=== PATIENT | female | born 1990 | race Caucasian/White ===

== ENCOUNTER → 2016-06-22 | Outpatient (CLI) | payer OTHER ==
[~2016-06-22] MED LIST: AMOX500C3 PO; NORG1TAB20 PO
[2016-06-22 10:32] LABS: CHOLESTEROL/HDL RATIO 2.7
== END | disposition home or self-care (01) ==
LOC: C.LAB 08:42
PROVIDERS: ATTEND Family Medicine
DX: Z00.00 Encounter for general adult medical examination without abnormal findings (principal)

== ENCOUNTER 2023-08-21 22:30 | Observation (INO) ==
--- NOTE | 2023-08-21 22:50 | Emergency Department Note ---
History of Present Illness General Chief complaint: Infection, Wound Stated complaint: POST OP, WOUND NEEDS CHECKED Time Seen by Provider: 08/21/23 22:43 History of Present Illness Maximum Pain Intensity: 3 This 33-year-old female who had a fibroid removed 10 days ago presents ER for increasing pain and swelling around the umbilicus area. OB started on Keflex yesterday and added and Bactrim today. Patient states she has had a low-grade fever and increasing pain and swelling. Patient denies chest pain, dyspnea, cough, congestion, vomiting, diarrhea, urinary symptoms. Home Medications Medication Instructions Recorded Confirmed Type ibuprofen 200 mg capsule 400 mg PO Q4H PRN Pain 03/16/20 08/22/23 History omeprazole 20 mg capsule,delayed 20 mg PO QAM #90 caps 05/27/22 08/22/23 Rx release acetazolamide 500 mg 500 mg PO HS 02/04/23 08/22/23 History capsule,extended release potassium chloride 20 mEq 20 meq PO DAILY #30 tabs 02/12/23 08/20/23 Rx tablet,extended release levothyroxine 75 mcg tablet 75 mcg PO QAM 07/07/23 08/22/23 History cephalexin 500 mg capsule 500 mg PO Q12H 10 days #20 caps 08/19/23 08/22/23 Rx sulfamethoxazole 800 1 tab PO BID 10 days #20 tabs 08/21/23 08/21/23 Rx mg-trimethoprim 160 mg tablet (Bactrim DS) escitalopram oxalate 20 mg tablet 20 mg PO QAM 08/22/23 08/22/23 History Allergies Allergy/AdvReac Type Severity Reaction Status Date / Time shellfish derived Allergy Unknown Rash Verified 08/20/23 14:12 (tolerates IV contrast in past) Past Med/Surg History Problem List (Updated 08/22/23 @ 00:12 by Anisa Martinez PA-C) Cellulitis of umbilicus (Acute) Cellulitis Leiomyoma of body of uterus Pseudotumor cerebri (Chronic) GERD (gastroesophageal reflux disease) (Chronic) Controlled Irritable bowel syndrome with diarrhea (Chronic) Iron deficiency anemia (Chronic) Hx Anxiety (Chronic) Hypothyroidism (Chronic) Abnormal uterine bleeding (AUB) (Chronic) Medical History Gynecological disorder Uterine septum (s/p surgery) IIH (idiopathic intracranial hypertension) Dx 01/2023 Reason for Acetazolamide Follows with [facility] Ovarian cyst Hx Surgical History History of colonoscopy Status post hysteroscopic resection of uterine septum H/O wisdom tooth extraction Family History Father Cerebral aneurysm Hypertension Mother CHF (congestive heart failure) Grandmother CHF (congestive heart failure) Brother Junctional rhythm Other Heart disease Social History Smoking Status: Never smoker Second Hand Exposure: No; Do You Dip or Chew Tobacco: No; Hx Alcohol Use: No Hx Substance Use: No Preferred Language: Somali Communication Ability: Effective Roll Carrier Required: No Beliefs That Will Affect Care: None marital status: Current Living Situation: Spouse current occupational status: employed 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 [employer] Feels Safe at Home: Yes Childhood Exposure to Second-Hand Smoke: No Diet: regular caffeine: Yes Dental Care, Regularly: Yes Physical Activity Frequency: 1-2 Times per Week Seatbelt Use: always Sunscreen Use: Yes Do you think of yourself as: straight/heterosexual Assistive Devices: None Review of Systems A total of 10 systems reviewed and were otherwise negative Physical Exam Vital Signs Vital Signs - 24 hr 08/21/23 22:32 08/21/23 22:48 Temperature 36.8 C Temperature Source Temporal Artery Scan Pulse Rate 130 H 117 H Pulse Rhythm Regular Pulse Strength Normal Respiratory Rate 20 Respiratory Effort / Characteristics Non-Labored Spontaneous Respiratory Depth Normal Blood Pressure 143/112 H Blood Pressure Mean 122 Blood Pressure Position Sitting Pulse Oximetry 98 Oxygen Delivery Method Room Air Sepsis Recent Fever Within 48 Hours No Sepsis New/Unexplained Change in Mental Status N/A Sepsis Action Taken by Nursing No Action Required VITALS: Vitals are noted on the nurse's note and reviewed by myself. Vital signs stable. GENERAL: Pleasant female, in no acute distress, nondiaphoretic, well-developed well-nourished. SKIN: Capillary reflex less than 2 seconds. HEENT: Normocephalic. PERRLA. EOMI. Nares patent. Mucous membranes moist. Neck is supple without nuchal rigidity. HEART: Regular rate and rhythm LUNGS: Clear to auscultation bilaterally without wheezes, rales or rhonchi. No retractions or accessory muscle use. ABDOMEN: Positive bowel sounds x 4. Normal tympanic percussion. Soft, tender to palpation over the umbilicus that is erythematous and concerns for cellulitis, without masses or organomegaly. Lobo sign negative. No guarding or rebound tenderness. no CVA tenderness MUSCULOSKELETAL: No gross musculoskeletal defects. NEURO: Patient was alert and oriented to person place and time. No focal neurological deficits. Course Administered Medications Discontinued Medications Diphenhydramine HCl (Diphenhydramine 50 Mg/Ml Vial) 50 mg IV ONE ONE Stop: 08/21/23 22:45 Last Admin: 08/21/23 23:00 Dose: Not Given Documented By: TIFFANY Sodium Chloride (Nss) 1,000 mls @ 999 mls/hr IV .Q1H1M STA Stop: 08/21/23 23:44 Last Admin: 08/21/23 23:45 Dose: 999 mls/hr Documented By: TIFFANY Piperacillin Sod/Tazobactam Sod (Zosyn) 4.5 gm in 100 mls @ 200 mls/hr IV NOW ONE Stop: 08/21/23 23:17 Last Admin: 08/21/23 23:45 Dose: 200 mls/hr Documented By: TIFFANY Ioversol (Optiray 320 100ml) 93 ml IV ONCE ONE Stop: 08/21/23 23:09 Last Admin: 08/21/23 23:08 Dose: 93 ml Documented By: DONNA Lorazepam (Lorazepam 1 Mg/1 Ml Syr Ed Inj Use) 1 mg IV ONE STA Stop: 08/21/23 23:50 Last Admin: 08/21/23 23:54 Dose: 1 mg Documented By: TIFFANY Methylprednisolone (Methylprednisolone 125 Mg/2 Ml Vial) 40 mg IV NOW ONE Stop: 08/21/23 22:45 Last Admin: 08/21/23 23:00 Dose: Not Given Documented By: TIFFANY Medical Decision Making Medical Records Attestation: I reviewed the patient's medical records. Home Medications Current Medication List: was personally reviewed by me Laboratory Data Attestation: I reviewed the patient's lab results. 08/21/23 22:45 08/21/23 22:45 Lab Results 08/21/23 08/21/23 Range/Units 22:45 22:53 WBC 11.98 H (4.8-10.8) K/ul RBC 5.28 (4.20-5.40) M/uL Hgb 11.4 L (12.0-16.0) g/dl POC Hgb 12.9 (12.0-16.0) g/dl Hct 38.4 (37.0-47.0) % POC Hct 38 (37-47) % MCV 72.7 L (80.0-100.0) fL MCH 21.6 L (25.0-34.0) pg MCHC 29.7 L (32.0-36.0) g/dL RDW Std Deviation 47.4 H (36.4-46.3) fL RDW Coeff of Nela 19.1 H (11.5-14.5) % Plt Count 457 H (130-400) K/uL MPV 11.0 (9.4-12.4) fL Immature Gran % (Auto) 0.3 % Neut % (Auto) 77.7 % Lymph % (Auto) 13.9 % [place] % (Auto) 6.8 % Eos % (Auto) 0.8 % Baso % (Auto) 0.5 % Neut # (Auto) 9.31 H (1.40-6.50) K/uL Lymph # (Auto) 1.66 (1.20-3.40) K/uL [place] # (Auto) 0.82 H (0.11-0.59) K/uL Eos # (Auto) 0.09 (0.00-0.50) K/uL Baso # (Auto) 0.06 (0.00-0.20) K/uL Immature Gran # (Auto) 0.04 (0.01-0.20) K/uL POC Sodium 141 (135-144) mmol/L Sodium 138 (136-145) mmol/L POC Potassium 3.1 L (3.3-5.0) mmol/L Potassium 3.2 L (3.5-5.1) mmol/L POC Chloride 110 (101-112) mmol/L Chloride 108 H (98-107) mmol/L Carbon Dioxide 20 L (21-32) mmol/L POC Total CO2 19 L (24-31) mmol/L Anion Gap 10 (3-11) POC Anion Gap 16.0 (16-25) mmol/L POC BUN 12 (7-18) mg/dl BUN 13 (6-23) mg/dl Creatinine 0.94 (0.6-1.2) mg/dl POC Creatinine 0.9 (0.6-1.3) mg/dl Est Cr Clr Drug Dosing 94.8 ml/min Est GFR ( Amer) 91.1 ml/min Est GFR (Non-Af Amer) 78.6 ml/min BUN/Creatinine Ratio 13.8 (10-20) Glucose 159 H (70-99(Fasting)) mg/dl POC Glucose (other) 152 H (70-99) mg/dl Lactate 1.9 (0.4-2.0) mmol/L Calcium 9.0 (8.6-10.3) mg/dl POC Ioniz Calcium Ivon 1.20 (1.12-1.32) mmol/l Total Bilirubin 0.3 (0.2-1.0) mg/dl AST 12 L (13-39) U/L ALT 9 (7-52) U/L Alkaline Phosphatase 95 (34-104) U/L Total Protein 7.5 (6.0-8.3) gm/dl Albumin 4.2 (3.4-5.0) gm/dl Globulin 3.3 (2.5-4.0) gm/dl Albumin/Globulin Ratio 1.3 (0.9-2) Lipase 21 (11-82) U/L HCG, Qual Negative (Negative) Imaging Data Attestation: I personally reviewed and interpreted this imaging study as follows: Radiologist's Impression: Abdomen/Pelvis CT 08/21/23 22:44 Exam(s): CT ABDOMEN + PELVIS With Contrast IV Amt: 93ml optiray 320 EXAM: CT Abdomen and Pelvis With Intravenous Contrast CLINICAL HISTORY: post op surgery. TECHNIQUE: Axial computed tomography images of the abdomen and pelvis with intravenous contrast. CTDI is 28.06 mGy and DLP is 1411.15 mGy-cm. Automated exposure control was utilized for the study. A dose lowering technique was utilized adhering to the principles of ALARA. CONTRAST: Patient received 93ml optiray 320 of IV contrast COMPARISON: No relevant prior studies available. FINDINGS: Lung bases: Unremarkable. No mass. No consolidation. ABDOMEN: Liver: Unremarkable. No mass. Gallbladder and bile ducts: Unremarkable. No calcified stones. No ductal dilation. Pancreas: Unremarkable. No mass. No ductal dilation. Spleen: Unremarkable. No splenomegaly. Adrenals: Unremarkable. No mass. Kidneys and ureters: Irregular atrophic left kidney. The kidneys demonstrate normal enhancement bilaterally without pyelonephritis. No nephrolithiasis or hydronephrosis. Stomach and bowel: The stomach is nearly completely distended with retained oral contents. No gastric mucosal thickening or retrograde filling of the distal esophagus. No bowel obstruction. No significant asymmetric bowel mucosal abnormality. Mild stool burden. No appreciable diverticulitis. PELVIS: Appendix: The appendix is not clearly delineated. No significant findings to suggest acute appendicitis. Bladder: Unremarkable. No mass. Reproductive: The uterus is prominent, measuring 11.5 cm in length with some mild lobulation. No adnexal mass. ABDOMEN and PELVIS: Intraperitoneal space: Unremarkable. No free air. No significant fluid collection. Bones/joints: No acute fracture. No dislocation. Soft tissues: Supraumbilical fat-containing hernia measuring 2 cm transverse. Fat stranding noted in multiple locations of the overlying abdominal subcutaneous fat with minimal subcutaneous emphysema. These changes are most prominent in the periumbilical region with fat stranding and minimal overlying dermal thickening. No abdominal wall hematoma or loculated fluid collection. Vasculature: Unremarkable. No abdominal aortic aneurysm. Lymph nodes: Unremarkable. No enlarged lymph nodes. IMPRESSION: 1. Fat stranding noted in multiple locations of the overlying abdominal subcutaneous fat with minimal subcutaneous emphysema. These changes are most prominent in the periumbilical region with fat stranding and minimal overlying dermal thickening. No abdominal wall hematoma or loculated fluid collection. Suspect normal post laparoscopic access changes. Developing infection of the periumbilical region is difficult to exclude by CT evaluation. Please correlate clinically. 2. The stomach is nearly completely distended with retained oral contents. No gastric mucosal thickening or retrograde filling of the distal esophagus. Suspect normal variation. However, please correlate with time line of oral intake for potential delayed gastric emptying. 3. No bowel obstruction. No significant asymmetric bowel mucosal abnormality. Mild stool burden. No appreciable diverticulitis. No free intraperitoneal fluid or pneumoperitoneum. Electronically signed by: Jovany De La Cruz MD 08/22/23 00:21 AM MDM Narrative Prior records/ancillary studies reviewed. Triage Nursing notes reviewed. Additional history obtained from family. The patient's history was concerning for fever. Differential diagnosis: Etiologies such as postop infection, viral syndrome, otitis, pharyngitis, pneumonia, influenza, meningitis, urinary tract infection, sepsis, bacteremia, as well as others were entertained. Physical examination: As above ER treatment provided: An order was placed for continuous cardiac monitoring. The monitor shows a rate of 60-140 with a sinus rhythm per my interpretation. IV fluids, Zosyn, ativan On reassessment the patient felt better. Diagnostics interpreted by me: ECG: Ordered for tachycardia EKG: Normal sinus, normal intervals, no acute ST-T wave changes. Impression sinus tachycardia independently interpreted by myself The labs Independently Interpreted by myself revealed mild leukocytosis, negative lactic Blood cultures pending Imaging studies: CT as above Consultation: A consultation was placed with SENIOR INDUSTRIAL ENGINEER, Dr. Santos. The case was discussed and diagnostics were reviewed. The patient was evaluated in the ER for further treatment. This appears to be consistent with umbilical cellulitis from recent surgery. OB was consulted and will evaluate and admit the patient. Patient was started on antibiotics. Blood cultures are pending. Negative lactate. Patient is agreeable to treatment plan of admission.. By the evaluation outlined above emergent etiologies such as otitis, pharyngitis, pneumonia, meningitis, urinary tract infection, sepsis, bacteremia, as well as others were deemed relatively unlikely. The pt informed about the findings as listed above. All questions were answered and pleased with the treatment. The chart was completed utilizing LookMed[employer] Speech voice recognition software. Grammatical errors, random word insertions, pronoun errors, and incomplete sentences are an occassional consequence of this system due to software limitations, ambient noise, and hardware issues. Any formal questions or concerns about the content, text, or information contained within the body of this dictation should be directly addressed to the physician district administrative assistant for clarification. Impression & Plan Cellulitis of umbilicus Discharge Plan Visit Data Chief Complaint: Infection, Wound Stated Complaint: POST OP, WOUND NEEDS CHECKED ED Provider: [facility] ED Midlevel Provider: Anisa Martinez Discharge Problem: Cellulitis of umbilicus Patient Disposition: Admitted As Inpatient Condition: Good Forms Stand Alone Forms: [employer] Prescriptions Prescriptions: No Action omeprazole 20 mg capsule,delayed release(DR/EC) 20 mg PO QAM Qty: 90 3RF potassium chloride 20 mEq tablet extended release 20 meq PO DAILY Qty: 30 1RF Patient Comments: no longer taking 07/07/23 cephalexin 500 mg capsule 500 mg PO Q12H 10 Days Qty: 20 0RF acetazolamide 500 mg capsule, extended release 500 mg PO HS sulfamethoxazole-trimethoprim [Bactrim DS] 800-160 mg tablet 1 tab PO BID 10 Days Qty: 20 0RF ibuprofen 200 mg Capsule 400 mg PO Q4H PRN (Reason: Pain) levothyroxine 75 mcg tablet 75 mcg PO QAM escitalopram oxalate 20 mg tablet 20 mg PO QAM Referrals Referrals: Gila Simon MD [Primary Care Provider] -
[2023-08-21] MEDS: methylPREDNISolone 125 MG/2 ML VIAL IV ONE (23:00)
[2023-08-21] MEDS: diphenhydrAMINE 50 MG/ML VIAL IV ONE (23:00)
[2023-08-21 23:04] LABS: Basophils # (auto) 0.06 K/uL (0.00-0.20); Basophils % (auto) 0.5 %; Eosinophils # (auto) 0.09 K/uL (0.00-0.50); Eosinophils % (auto) 0.8 %; Hematocrit (blood only) 38.4 % (37.0-47.0); Hemoglobin 11.4 g/dl (12.0-16.0); Immature Granulocytes # (auto) 0.04 K/uL (0.01-0.20); Immature Granulocytes % (auto) 0.3 %; Lymphocytes # (auto) 1.66 K/uL (1.20-3.40); Lymphocytes % (auto) 13.9 %; Mean Corpuscular Hemoglobin 21.6 pg (25.0-34.0); Mean Corpuscular Hgb Conc 29.7 g/dL (32.0-36.0); Mean Corpuscular Volume 72.7 fL (80.0-100.0); Monocytes # (auto) 0.82 K/uL (0.11-0.59); Monocytes % (auto) 6.8 %; Neutrophils # (auto) 9.31 K/uL (1.40-6.50); Neutrophils % (auto) 77.7 %; Platelet Count 457 K/uL (130-400); RDW Coefficient of Variation 19.1 % (11.5-14.5); RDW Standard Deviation 47.4 fL (36.4-46.3); Red Blood Count 5.28 M/uL (4.20-5.40); White Blood Count 11.98 K/ul (4.8-10.8)
[2023-08-21 23:06] LABS: iSTAT Creatinine 0.9 mg/dl (0.6-1.3); iSTAT Hemoglobin 12.9 g/dl (12.0-16.0); iSTAT Ionized Calcium 1.2 mmol/l (1.12-1.32); iSTAT Potassium 3.1 mmol/L (3.3-5.0)
[2023-08-21] MEDS: OPTIRAY 320 100ml IV ONE (23:08)
[2023-08-21 23:20] LABS: Albumin Globulin Ratio 1.3 (0.9-2); Albumin Level 4.2 gm/dl (3.4-5.0); BUN Creatinine Ratio 13.8 (10-20); Bilirubin,Total 0.3 mg/dl (0.2-1.0); Creatinine Clr Calc Pharmacy 94.8 ml/min; Est GFR (African American) 91.1 ml/min; Est GFR (Non-African American) 78.6 ml/min; Globulin 3.3 gm/dl (2.5-4.0); Potassium 3.2 mmol/L (3.5-5.1); Total Protein 7.5 gm/dl (6.0-8.3)
[2023-08-21 23:21] LABS: Pregnancy Test, Serum Negative (Negative)
[2023-08-21] MEDS: SODIUM CHLORIDE 0.9% 1,000 ML IV STA (23:45)
[2023-08-21] MEDS: PIPERACILLIN/TAZOBACTAM 4.5 GM/100 ML BAG IV ONE (23:45)
[2023-08-21] MEDS: LORazepam 1 MG/1 ML SYR ED Inj Use IV STA (23:54)
--- NOTE | 2023-08-22 00:22 | CT Scan Report ---
Exam(s): CT ABDOMEN + PELVIS With Contrast IV Amt: 93ml optiray 320 EXAM: CT Abdomen and Pelvis With Intravenous Contrast CLINICAL HISTORY: post op surgery. TECHNIQUE: Axial computed tomography images of the abdomen and pelvis with intravenous contrast. CTDI is 28.06 mGy and DLP is 1411.15 mGy-cm. Automated exposure control was utilized for the study. A dose lowering technique was utilized adhering to the principles of ALARA. CONTRAST: Patient received 93ml optiray 320 of IV contrast COMPARISON: No relevant prior studies available. FINDINGS: Lung bases: Unremarkable. No mass. No consolidation. ABDOMEN: Liver: Unremarkable. No mass. Gallbladder and bile ducts: Unremarkable. No calcified stones. No ductal dilation. Pancreas: Unremarkable. No mass. No ductal dilation. Spleen: Unremarkable. No splenomegaly. Adrenals: Unremarkable. No mass. Kidneys and ureters: Irregular atrophic left kidney. The kidneys demonstrate normal enhancement bilaterally without pyelonephritis. No nephrolithiasis or hydronephrosis. Stomach and bowel: The stomach is nearly completely distended with retained oral contents. No gastric mucosal thickening or retrograde filling of the distal esophagus. No bowel obstruction. No significant asymmetric bowel mucosal abnormality. Mild stool burden. No appreciable diverticulitis. PELVIS: Appendix: The appendix is not clearly delineated. No significant findings to suggest acute appendicitis. Bladder: Unremarkable. No mass. Reproductive: The uterus is prominent, measuring 11.5 cm in length with some mild lobulation. No adnexal mass. ABDOMEN and PELVIS: Intraperitoneal space: Unremarkable. No free air. No significant fluid collection. Bones/joints: No acute fracture. No dislocation. Soft tissues: Supraumbilical fat-containing hernia measuring 2 cm transverse. Fat stranding noted in multiple locations of the overlying abdominal subcutaneous fat with minimal subcutaneous emphysema. These changes are most prominent in the periumbilical region with fat stranding and minimal overlying dermal thickening. No abdominal wall hematoma or loculated fluid collection. Vasculature: Unremarkable. No abdominal aortic aneurysm. Lymph nodes: Unremarkable. No enlarged lymph nodes. IMPRESSION: 1. Fat stranding noted in multiple locations of the overlying abdominal subcutaneous fat with minimal subcutaneous emphysema. These changes are most prominent in the periumbilical region with fat stranding and minimal overlying dermal thickening. No abdominal wall hematoma or loculated fluid collection. Suspect normal post laparoscopic access changes. Developing infection of the periumbilical region is difficult to exclude by CT evaluation. Please correlate clinically. 2. The stomach is nearly completely distended with retained oral contents. No gastric mucosal thickening or retrograde filling of the distal esophagus. Suspect normal variation. However, please correlate with time line of oral intake for potential delayed gastric emptying. 3. No bowel obstruction. No significant asymmetric bowel mucosal abnormality. Mild stool burden. No appreciable diverticulitis. No free intraperitoneal fluid or pneumoperitoneum. Electronically signed by: Jovany De La Cruz MD 08/22/23 00:21 AM
[2023-08-22] MEDS ORDERED: MAGNESIUM HYDROXIDE SUSP 30 ML UDC PO PRN (00:28)
[2023-08-22] MEDS ORDERED: ALUMINUM/MAGNESIUM/SIMETH (MAALOX MAX) 30 ML UDC PO PRN (00:28)
[2023-08-22] MEDS ORDERED: LORazepam 0.5 MG TAB PO PRN (00:28)
[2023-08-22] MEDS ORDERED: ONDANSETRON INJ 2 MG/ML 2 ML VIAL IV PRN (00:28)
[2023-08-22] MEDS ORDERED: ACETAMINOPHEN 325 MG TAB PO PRN (00:28)
[2023-08-22] MEDS: diphenhydrAMINE 50 MG/ML VIAL IV STA (00:34)
[2023-08-22] MEDS: PIPERACILLIN/TAZOBACTAM 4.5 GM in DEXTROSE 5% MINI-B 100 ML IV SCH (00:34)
[2023-08-22] MEDS: SODIUM CHLORIDE 0.9% 1,000 ML IV ONE (00:47)
--- NOTE | 2023-08-22 01:10 | History & Physical Report ---
Date of Service August 22, 2023 Assessment & Plan (1) Postoperative wound cellulitis: Plan: CT scan shows no evidence of abscess or loculated fluid in the area of cellulitis she is afebrile here in the ER but with the increased drainage and tachycardia, elevated white count and no improvement on oral antibiotics, we will admit her for IV antibiotic therapy. wound culture was done but it is superficial and may not be helpful as she has already taken several doses of Keflex and one dose of Bactrim. So we will start Zosyn to cover all potential microbes. History of Present Illness Chief Complaint: fever/tachycardia/wound cellulitis Primary Care Provider: Gila Simon MD Patient is a 33-year-old nulligravida female who had undergone a robotic resection of a large leiomyoma on 08/11/2023. She has been doing well until 08/19/2023 when she developed a hard swelling above the umbilicus and the umbilical incision. She had had no drainage at that point and no redness noticed. She was begun on Keflex 500 mg every 12 hours at that time. She also denies any fever or chills at that time. On 08/19, she developed a dark brown and somewhat purulent discharge from the incision and was concerned that now the incision was red and tender. She was seen in the office and Bactrim DS twice daily was added to the Keflex regimen. She had only taken 1 dose of the Bactrim when she noticed fever and chills and her temperature was 101 F. She also was tachycardic at that time. She denies any nausea or vomiting. In fact, she had been out to dinner with her when she started to experience the fever and chills. Serous Drainage from her incision had also increased and she became concerned enough to merit evaluation in the emergency room this evening. Allergies Allergy/AdvReac Type Severity Reaction Status Date / Time shellfish derived Allergy Unknown Rash Verified 08/20/23 14:12 (tolerates IV contrast in past) Home Medications Medication Instructions Recorded Confirmed Type ibuprofen 200 mg capsule 400 mg PO Q4H PRN Pain 03/16/20 08/22/23 History omeprazole 20 mg capsule,delayed 20 mg PO QAM #90 caps 05/27/22 08/22/23 Rx release acetazolamide 500 mg 500 mg PO HS 02/04/23 08/22/23 History capsule,extended release levothyroxine 75 mcg tablet 75 mcg PO QAM 07/07/23 08/22/23 History cephalexin 500 mg capsule 500 mg PO Q12H 10 days #20 caps 08/19/23 08/22/23 Rx sulfamethoxazole 800 1 tab PO BID 10 days #20 tabs 08/21/23 08/22/23 Rx mg-trimethoprim 160 mg tablet (Bactrim DS) escitalopram oxalate 20 mg tablet 20 mg PO QAM 08/22/23 08/22/23 History Patient History Medical History Gynecological disorder Uterine septum (s/p surgery) IIH (idiopathic intracranial hypertension) Dx 01/2023 Reason for Acetazolamide Follows with [facility] neuro Ovarian cyst Hx Surgical History History of colonoscopy Status post hysteroscopic resection of uterine septum H/O wisdom tooth extraction Family History Father Cerebral aneurysm Hypertension Mother CHF (congestive heart failure) Grandmother CHF (congestive heart failure) Brother Junctional rhythm Other Heart disease Social History Smoking Status: Never smoker Second Hand Exposure: No; Do You Dip or Chew Tobacco: No; Hx Alcohol Use: No Hx Substance Use: No Preferred Language: Honduran Communication Ability: Effective River Transportation Worker Required: No Beliefs That Will Affect Care: None marital status: Current Living Situation: Spouse current occupational status: employed 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 [employer] Feels Safe at Home: Yes Childhood Exposure to Second-Hand Smoke: No Diet: regular caffeine: Yes Dental Care, Regularly: Yes Physical Activity Frequency: 1-2 Times per Week Seatbelt Use: always Sunscreen Use: Yes Do you think of yourself as: straight/heterosexual Assistive Devices: None Review of Systems All systems reviewed & are unremarkable except as noted in HPI & below Physical Exam Constitutional: WD/WN, vitals as above Respiratory: normal respiratory effort, lungs clear to auscultation Cardiovascular: RRR, no murmur, no edema Gastrointestinal (Abdomen): Inspection/Auscultation: + abdominal surgical incision 4cm area of erythema and induration supe rior to the umbilicus and encompassing the incision. Moderate amount of serosanguinous drainage also noted on dressing and when incision pressed. no purulent drainage noted. milder erythema also ext ends superiorly around the indurated area as well . Psychiatric: A+Ox3, euthymic affect Results & Data Vital Signs (Past 12 Hours) Vital Signs Temp Pulse Resp BP Pulse Ox O2 Del Method 08/21/23 22:48 117 H 08/21/23 22:32 98.2 F 130 H 20 143/112 H 98 Room Air Code Status & VTE Plan VTE Prophylaxis Plan VTE Prophylaxis will be ordered: No Coding Level of Care Code 03672 INT INP/OBS CARE 40MIN Diagnoses Postoperative wound cellulitis T81.49XA
[2023-08-22] MEDS: LACTATED RINGER'S 1,000 ML IV SCH ×2 (03:32→03:50)
[2023-08-22] MEDS: IBUPROFEN 200 MG TAB PO PRN (03:50)
[2023-08-22 04:45] LABS: Appearance Urine Turbid (Clear); Bacteria Urine Automated 1+ (None Seen); Bilirubin Urine 1+ (Negative); Blood Urine 3+ (Negative); Calcium Oxalate Crystals Urine Present (None Prsent); Color Urine Orange; Epithelial Cell Urine Auto 0-2 /hpf (0-2); Glucose Urine UA Negative (Negative); Ketones Urine Negative (Negative); Leukocyte Esterase Urine 2+ (Negative); Nitrite Urine Negative (Negative); Protein Urine 3+ (Negative); RBC Urine Automated >20 /hpf (0-2); Specific Gravity Urine 1.027 (1.000-1.030); Urobilinogen Urine Negative (Negative); WBC Urine Automated >50 /hpf (0-5); pH Urine 5.5 (4.5-7.5)
[2023-08-22] MEDS: LEVOTHYROXINE SODIUM 75 MCG TABLET PO SCH (05:40)
--- NOTE | 2023-08-22 08:16 | Gynecologic Progress Note ---
Date of Service August 22, 2023 Assessment & Plan (1) Postoperative wound cellulitis: Plan: Patient was admitted early this morning for elevated white count and pulse rate she had an elevated temperature at home as well she had attempted and failed outpatient antibiotic management and is now on IV antibiotics. Came by bedside to discussed with patient she is feeling okay definitely feels better on it than when she was admitted we discussed how long to run the IV antibiotics and discussed further outpatient therapy after discharge patient is interested in going home later today we will have to reassess and see how she is doing we discussed the possibility of staying 1 more night support and reassurance provided I also reviewed her CT scan with her which seems to be nothing active in the pelvis which is good and this seems very superficial as far as the infection Admission and Anticipated Discharge Date Admission Date: August 22, 2023 Results & Data Vital Signs (Past 12 Hours) Vital Signs Temp Pulse Pulse Pulse Resp BP BP 08/22/23 07:14 97.9 F 85 16 129/79 08/22/23 03:22 98.2 F 109 H 18 121/87 08/22/23 01:00 102 H 16 146/96 H 08/22/23 00:00 101 H 21 142/96 H 08/21/23 22:48 117 H 08/21/23 22:32 98.2 F 130 H 20 143/112 H Pulse Ox O2 Del Method 08/22/23 07:14 96 Room Air 08/22/23 03:22 97 Room Air 08/22/23 01:00 100 08/22/23 00:00 100 08/21/23 22:48 08/21/23 22:32 98 Room Air PG Care Time/CCT Total # of Minutes Spent Total Time Spent with Patient: Total time spent is greater than 50% in coordination of care (as documented) at patient's floor/unit and/or counseling patient: Coding Level of Care Code 92435 Post Operative Follow-Up Diagnoses Postoperative wound cellulitis T81.49XA
[2023-08-22 08:20] LABS: Basophils # (auto) 0.05 K/uL (0.00-0.20); Basophils % (auto) 0.5 %; Eosinophils # (auto) 0.09 K/uL (0.00-0.50); Eosinophils % (auto) 0.9 %; Hematocrit (blood only) 32.6 % (37.0-47.0); Hemoglobin 9.7 g/dl (12.0-16.0); Immature Granulocytes # (auto) 0.03 K/uL (0.01-0.20); Immature Granulocytes % (auto) 0.3 %; Lymphocytes # (auto) 1.79 K/uL (1.20-3.40); Lymphocytes % (auto) 17.7 %; Mean Corpuscular Hemoglobin 21.5 pg (25.0-34.0); Mean Corpuscular Hgb Conc 29.8 g/dL (32.0-36.0); Mean Corpuscular Volume 72.1 fL (80.0-100.0); Mean Platelet Volume 11.6 fL (9.4-12.4); Monocytes # (auto) 0.81 K/uL (0.11-0.59); Neutrophils # (auto) 7.36 K/uL (1.40-6.50); Neutrophils % (auto) 72.6 %; Platelet Count 422 K/uL (130-400); RDW Coefficient of Variation 18.5 % (11.5-14.5); RDW Standard Deviation 47.3 fL (36.4-46.3); Red Blood Count 4.52 M/uL (4.20-5.40); White Blood Count 10.13 K/ul (4.8-10.8)
[2023-08-22] MEDS: ESCITALOPRAM OXALATE 20 MG TAB PO SCH (09:32)
[2023-08-22] MEDS: PANTOprazole 40 MG TAB PO SCH (09:33)
[2023-08-22] MEDS: ADVANCED PROBIOTIC 625 MG CAPSULE PO SCH (09:38)
[2023-08-22] MEDS ORDERED: ZOLPIDEM TARTRATE 5 MG TAB PO PRN (19:55)
[2023-08-22] MEDS: acetaZOLAMIDE 500 MG CAPCR PO SCH (20:24)
[2023-08-23 06:26] LABS: Hematocrit (blood only) 30.5 % (37.0-47.0); Hemoglobin 9.1 g/dl (12.0-16.0); Mean Corpuscular Hemoglobin 21.8 pg (25.0-34.0); Mean Corpuscular Hgb Conc 29.8 g/dL (32.0-36.0); Mean Corpuscular Volume 73.1 fL (80.0-100.0); Mean Platelet Volume 12.1 fL (9.4-12.4); Platelet Count 383 K/uL (130-400); RDW Coefficient of Variation 18.6 % (11.5-14.5); RDW Standard Deviation 48.5 fL (36.4-46.3); Red Blood Count 4.17 M/uL (4.20-5.40); White Blood Count 7.05 K/ul (4.8-10.8)
--- NOTE | 2023-08-23 08:10 | Gynecologic Progress Note ---
Date of Service August 23, 2023 Assessment & Plan (1) Postoperative wound cellulitis: Plan: Post op day 12 and hospital day 2 for a post op wound infection from laparoscopic myomectomy. Remains afebrile with improving symptoms. Improving wound appearance. Course is stable for outpatient antibiotic management. Continue Bactrim and Keflex while awaiting cultures. Plan for discharge and follow up in clinic on Friday. Will call with any changes over the weekend. Admission and Anticipated Discharge Date Admission Date: August 22, 2023 Subjective No acute event. No fevers since admission. Reporting serous drainage. Tenderness improving Physical Exam Gastrointestinal (Abdomen): Percussion/Palpation: abdomen soft; abdomen nontender, no guarding and abdomen not rigid Incision with serous drainage. Erythema mildly improved. Induration improving. Results & Data Vital Signs (Past 12 Hours) Vital Signs Temp Pulse Resp BP Pulse Ox O2 Del Method 08/22/23 23:00 36.6 C 81 20 137/80 97 Room Air 08/22/23 20:51 36.5 C 73 16 114/77 96 Room Air 08/22/23 20:18 Room Air PG Care Time/CCT Total # of Minutes Spent Total Time Spent with Patient: Total time spent is greater than 50% in coordination of care (as documented) at patient's floor/unit and/or counseling patient: Coding Level of Care Code 50162 Post Operative Follow-Up Diagnoses Postoperative wound cellulitis T81.49XA
--- NOTE | 2023-08-25 17:41 | Discharge Summary ---
Date of Service August 25, 2023 Admission HPI Per Admitting Provider Patient is a 33-year-old nulligravida female who had undergone a robotic resection of a large leiomyoma on 08/11/2023. She has been doing well until 08/19/2023 when she developed a hard swelling above the umbilicus and the umbilical incision. She had had no drainage at that point and no redness noticed. She was begun on Keflex 500 mg every 12 hours at that time. She also denies any fever or chills at that time. On 08/19, she developed a dark brown and somewhat purulent discharge from the incision and was concerned that now the incision was red and tender. She was seen in the office and Bactrim DS twice daily was added to the Keflex regimen. She had only taken 1 dose of the Bactrim when she noticed fever and chills and her temperature was 101 F. She also was tachycardic at that time. She denies any nausea or vomiting. In fact, she had been out to dinner with her when she started to experience the fever and chills. Serous Drainage from her incision had also increased and she became concerned enough to merit evaluation in the emergency room this evening. Admission Exam (Per Admitting) Constitutional WD/WN, vitals as above Respiratory normal respiratory effort, lungs clear to auscultation Cardiovascular RRR, no murmur, no edema Gastrointestinal (Abdomen) Inspection/Auscultation: + abdominal surgical incision Psychiatric A+Ox3, euthymic affect Discharge Data Consultations 08/22/23 00:11 ED Decision to Admit Stat Hospital Course (1) Postoperative wound cellulitis: Post op day 12 and hospital day 2 for a post op wound infection from laparoscopic myomectomy. Remains afebrile with improving symptoms. Improving wound appearance. Course is stable for outpatient antibiotic management. Continue Bactrim and Keflex while awaiting cultures. Plan for discharge and follow up in clinic on Friday. Will call with any changes over the weekend. Discharge Plan Discharge Items Patient Disposition: Home - Self-Care Reason For Visit: WOUND CELLULITIS Discharge Diagnosis: Wound infection Condition on Discharge: Good Activity: Per Instructions section Non-emergency contact: Adult Specialist Call non-emergency contact if: your temperature is above 101 Follow-up/Referrals: Gila Simon MD [Primary Care Provider] - Diet: Regular Addtl Attending Provider Instructions: Per instructions from surgery Continue Bactrim 800-160mg BID and Keflex 500mg BID while awaiting cultures. Pending Studies at Discharge: No Stand-Alone Forms: My [facility] [employer] Smoking Cessation Medications and DC Order Prescriptions: Continued omeprazole 20 mg capsule,delayed release(DR/EC) 20 mg PO QAM Qty: 90 3RF acetazolamide 500 mg capsule, extended release 500 mg PO HS ibuprofen 200 mg Capsule 400 mg PO Q4H PRN (Reason: Pain) levothyroxine 75 mcg tablet 75 mcg PO QAM escitalopram oxalate 20 mg tablet 20 mg PO QAM Changed cephalexin 500 mg capsule 500 mg PO Q12 10 Days Qty: 40 0RF Rx Instructions: may change antibiotics Discharge Orders: Discharge Order (Routine); Ordered 08/23/23 Ordered By: Nader Bynum Admission Data Admit Date/Time: 08/22/23 00:29 Attending Provider: Shayy York Admit Provider: Shayy York Primary Care Provider: Gila Simon Other Interventions: Discharge Summary Assessment (RN) Last Done: 08/23/23 09:59 Coding Level of Care Code None Diagnoses Postoperative wound cellulitis T81.49XA
== END 2023-08-23 10:03 | disposition home or self-care (01) | DRG 863 ==
LOC: ED 22:30 → 3N 08-22 00:29 → INTOOBSV 08-22 00:29 → 3N 08-22 02:05 → 4E2 08-22 21:18